=== PATIENT | male | born 1985 | race Caucasian/White ===

== ENCOUNTER 2017-01-25 19:02 | Emergency (ER) | payer SELFPAY ==
[2017-01-25 19:42] VITALS: BP 102/58; PULSE 100; RESP 18; O2SAT 96
[2017-01-25 19:51] VITALS: BP 106/60; PULSE 88; RESP 16; TEMP 98; O2SAT 98
[2017-01-25] MEDS ORDERED: LORazepam 2 MG/ML VIAL ONE (19:51)
[2017-01-25] MEDS ORDERED: LORazepam 2 MG/ML VIAL IV PUSH PRN (20:00)
--- NOTE | 2017-01-25 20:02 | PD ---
HPI Chief Complaint: Alcohol/Drug Intoxication Time Seen by Provider: 19:43 Travel History International Travel<30 days: No Contact w/Intl Traveler<30days: No Traveled to known affect area: No History of Present Illness HPI This is a 31-year-old male who presents to the emergency department having been found in his apartment complex thought to be intoxicated. There was no sign of injury. The patient had hospital socks on and discharge paperwork from another hospital. PFSH Past Medical History Medical History: Unable to Obtain Social History Alcohol Use: Yes Tobacco Use: Yes (unobtainable) Allergies-Medications (Allergen,Severity, Reaction): Coded Allergies: UNOBTAINABLE (Unverified , 01/25/17) Review of Systems ROS Limitations: Intoxication Physical Exam Narrative GENERAL: Agitated, intermittently combative. Smells of alcohol. SKIN: 3 x 6 cm wound with granulation tissue along the plantar aspect of the right foot with thickened skin of the entire plantar surface HEAD: Atraumatic. Normocephalic. EYES: Pupils are 4 mm, equal and dilated No injection or drainage. ENT: Moist mucous membranes NECK: Trachea midline. CARDIOVASCULAR: Regular rate and rhythm. No murmur appreciated. RESPIRATORY: Clear to auscultation. Breath sounds equal bilaterally. GASTROINTESTINAL: Abdomen soft, non-tender, nondistended. MUSCULOSKELETAL: No obvious deformities. NEUROLOGICAL: Confused, clinically intoxicated. No obvious cranial nerve deficits. Moving all extremities. Data Data Last Documented VS Vital Signs Date Time Temp Pulse Resp B/P Pulse Ox O2 Delivery O2 Flow Rate FiO2 01/26/17 02:25 86 16 91/55 98 Room Air 01/25/17 19:51 98.0 Orders Complete Blood Count With Diff (01/25/17 19:49) Basic Metabolic Panel (Bmp) (01/25/17 19:49) Alcohol (Ethanol) (01/25/17 19:49) Lorazepam Inj (Ativan Inj) (01/25/17 20:00) Lorazepam Inj (Ativan Inj) (01/25/17 19:51) Lorazepam Inj (Ativan Inj) (01/25/17 20:15) Drug Screen, Random Urine (01/25/17 20:13) Restraints Non-Violent SALINA.Q3H (01/25/17 21:50) Labs Laboratory Tests Test 4/6/17 20:11 White Blood Count 12.2 TH/MM3 Red Blood Count 5.06 MIL/MM3 Hemoglobin 15.2 GM/DL Hematocrit 43.8 % Mean Corpuscular Volume 86.6 FL Mean Corpuscular Hemoglobin 30.0 PG Mean Corpuscular Hemoglobin 34.6 % Concent Red Cell Distribution Width 16.7 % Platelet Count 115 TH/MM3 Mean Platelet Volume 9.9 FL Neutrophils (%) (Auto) 43.9 % Lymphocytes (%) (Auto) 35.1 % Monocytes (%) (Auto) 9.1 % Eosinophils (%) (Auto) 11.3 % Basophils (%) (Auto) 0.6 % Neutrophils # (Auto) 5.4 TH/MM3 Lymphocytes # (Auto) 4.3 TH/MM3 Monocytes # (Auto) 1.1 TH/MM3 Eosinophils # (Auto) 1.4 TH/MM3 Basophils # (Auto) 0.1 TH/MM3 CBC Comment DIFF FINAL Differential Comment Sodium Level 139 MEQ/L Potassium Level 3.1 MEQ/L Chloride Level 103 MEQ/L Carbon Dioxide Level 27.4 MEQ/L Anion Gap 9 MEQ/L Blood Urea Nitrogen 5 MG/DL Creatinine 0.73 MG/DL Estimat Glomerular Filtration 125 ML/MIN Rate Random Glucose 92 MG/DL Calcium Level 8.4 MG/DL Urine Opiates Screen NEG Urine Barbiturates Screen NEG Urine Amphetamines Screen NEG Urine Benzodiazepines Screen NEG Urine Cocaine Screen NEG Urine Cannabinoids Screen NEG Ethyl Alcohol Level 422 MG/DL MDM Medical Decision Making Medical Screen Exam Complete: Yes Emergency Medical Condition: Yes Interpretation(s) Mild leukocytosis Mild hypokalemia Alcohols 422 Drug screen is negative Differential Diagnosis Acute alcohol intoxication, substance intoxication, electrolyte abnormality, infection Narrative Course This is a 31-year-old male who presents to the emergency department having been found poorly responsive in his apartment complex smelling of alcohol. Patient was placed in a monitor and an IV was established. He was found to have an alcohol level of 422. Drug screen was negative. Patient has evidence of thickened skin on the right foot with some ulceration which appears to be due to environmental exposure but I don't appreciate an acute infection. Patient became increasingly responsive and alert in the emergency department and will be discharged home when sober. Diagnosis Primary Impression: Acute alcohol intoxication Qualified Code: F10.120 - Acute alcohol intoxication, uncomplicated Patient Instructions: General Instructions Additional Instructions: Follow up with Lian Ware in regards to psychiatric or substance related issues at: [address] [place] [address] Med/Other Pt SpecificInfo: No Change to Meds Disposition: 01 DISCHARGE HOME Condition: Stable Mayra Rodriguez MD Jan 25, 2017 20:02
[2017-01-25] MEDS ORDERED: LORazepam 2 MG/ML VIAL IV PUSH ONE (20:15)
[2017-01-25 20:56] LABS: AUTOMATED NEUTROPHIL # 5.4 TH/MM3 (1.8-7.7); BASOPHIL # 0.1 TH/MM3 (0-0.2); BASOPHIL % 0.6 % (0.0-2.0); EOSINOPHIL # 1.4 TH/MM3 (0-0.4); EOSINOPHIL % 11.3 % (0.0-4.0); HEMATOCRIT 43.8 % (39.0-51.0); HEMO FLAGS DIFF FINAL; LYMPH % 35.1 % (9.0-44.0); LYMPHOCYTE # 4.3 TH/MM3 (1.0-4.8); MEAN CELL VOLUME 86.6 FL (80.0-100.0); MEAN CORPUSCULAR HGB CONC 34.6 % (32.0-36.0); MONO % 9.1 % (0.0-8.0); NEUT % 43.9 % (16.0-70.0); PLATELET COUNT 115 TH/MM3 (150-450); RED BLOOD COUNT 5.06 MIL/MM3 (4.50-5.90); RED CELL DISTRIBUTION WIDTH 16.7 % (11.6-17.2); WHITE BLOOD COUNT 12.2 TH/MM3 (4.0-11.0)
[2017-01-25 21:18] LABS: BICARBONATE 27.4 MEQ/L (21.0-32.0); POTASSIUM 3.1 MEQ/L (3.5-5.1)
[2017-01-25 22:01] LABS: AMPHETAMINE, URINE NEG (NEG); BARBITURATES, URINE NEG (NEG); COCAINE, URINE NEG (NEG)
[2017-01-25 23:55] VITALS: BP 108/56; PULSE 61; RESP 16; O2SAT 99
[2017-01-26 01:29] VITALS: BP 108/65; PULSE 87; RESP 18; O2SAT 98
[2017-01-26 02:25] VITALS: BP 91/55; PULSE 86; RESP 16; O2SAT 98
[2017-01-26 06:22] VITALS: BP 100/52
== END 2017-01-26 06:38 | disposition home or self-care (01) ==
LOC: NEPE 19:02 → NEPD 01-26 06:38
DX: F10.120 Alcohol abuse with intoxication, uncomplicated (principal); L85.9 Epidermal thickening, unspecified; Y90.8 Blood alcohol level of 240 mg/100 ml or more
CPT/HCPCS: 80048; 80307; 85025; 96374; 96376; 99285; J2060

== ENCOUNTER 2017-01-27 19:06 | Emergency (ER) | payer SELFPAY ==
[~2017-01-27] VITALS: Ht 162.6 cm; Wt 70.0 kg
[2017-01-27 19:59] VITALS: BP 138/85; PULSE 112; RESP 18; TEMP 98; O2SAT 96
--- NOTE | 2017-01-27 20:28 | PD ---
HPI Chief Complaint: Skin Problem Time Seen by Provider: 20:18 Travel History International Travel<30 days: No Contact w/Intl Traveler<30days: No Traveled to known affect area: No History of Present Illness HPI 31-year-old male presents for evaluation of right foot issues. He is had issues with recurring skin breakdown with resultant infectious processes for the past 5 years. He reports that he is homeless, recently traveled down here from [facility] to the area. For the past 3 weeks he has had increased irritation and skin breakdown to the right foot. The patient was seen here 2 days ago and evaluated for alcohol intoxication as well as for this issue, there is no evidence for infectious process. The foot was bandaged with Telfa and gauze and Teetee. He has not removed the bandages. He continues to have pain in the right foot. He reports that he essentially is always wearing shoes. The patient is a poor historian. [facility] Social History Alcohol Use: Yes Tobacco Use: Yes (unobtainable) Allergies-Medications (Allergen,Severity, Reaction): Coded Allergies: Penicillin (Verified Allergy, Intermediate, Hives, 01/27/17) Seafood (Verified Allergy, Intermediate, Hives, 01/27/17) Review of Systems Except as stated in HPI: all other systems reviewed are Neg Physical Exam Narrative GENERAL: Well-nourished male in no acute distress SKIN: Warm and dry. Skin maceration from moisture and friction noted to the dorsal and plantar aspect of the right foot. There is no erythema, no purulent drainage. CARDIOVASCULAR: Regular rate and rhythm. No murmur appreciated. RESPIRATORY: No accessory muscle use. Clear to auscultation. Breath sounds equal bilaterally. Extremities: Skin as noted above. No bony deformity. Distal pulses and sensation are preserved. Data Data Last Documented VS Vital Signs Date Time Temp Pulse Resp B/P Pulse Ox O2 Delivery O2 Flow Rate FiO2 01/27/17 19:59 98.0 112 18 138/85 96 Room Air MDM Medical Decision Making Medical Screen Exam Complete: Yes Emergency Medical Condition: Yes Medical Record Reviewed: Yes Differential Diagnosis Skin maceration, cellulitis, osteomyelitis, ulceration, impetigo, erysipelas Narrative Course 31-year-old male who has had frequent issues with cutaneous infection and skin breakdown on the right foot for the past 5 years. On examination he has skin maceration and irritation on the dorsal and plantar aspect of the right foot which is secondary to moisture and friction from constantly wearing shoes. The patient is homeless and he is requesting that he be admitted for this issue. I explained him that there is no infectious process that would require admission at this time and I suspect that there is some element of malingering secondary to his homelessness and this request. The patient became increasingly belligerent and combative and began shouting profanities. I attempted to explain recommendation to decrease the amount of time that his right foot is in a sock and shoe in order to decrease friction and moisture irritation. I attempted do discuss signs and symptoms of active infection that would warrant return to the emergency room. Diagnosis Primary Impression: Skin maceration Additional Instructions: As discussed, constant moisture and friction is irritating and breaking down the skin of the right foot. To allow the skin to heal, change to sandals or some other type of footwear that will decrease the constant pressure on her foot. Keep the wounds clean and dry in order to help facilitate healing. Return for any signs of active infection such as increasing redness around the wounds, red streaks up the leg, fevers. Med/Other Pt SpecificInfo: No Change to Meds Disposition: 01 DISCHARGE HOME Condition: Stable Kranthi Samayoa Jan 27, 2017 20:28
== END 2017-01-27 20:47 | disposition home or self-care (01) ==
LOC: NEPK 19:06
DX: T69.021A Immersion foot, right foot, initial encounter (principal); Z59.0 Homelessness; Z72.0 Tobacco use
CPT/HCPCS: 99283